=== PATIENT | male | born 1950 | race Hispanic/Latino ===

== ENCOUNTER 2020-06-04 22:37 | Emergency (ER) | payer MEDICARE ==
[2020-06-04] MEDS ORDERED: Morphine 4 MG/ML VIAL ONE (23:14)
[2020-06-04] MEDS ORDERED: Ondansetron PF 4 MG/2 ML Vial ONE (23:14)
--- NOTE | 2020-06-04 23:43 | RAD ---
Right shoulder 3 views HISTORY: Fall. Injury. FINDINGS: Humeral head lies immediately anterior and inferior to the glenoid. There are a 2.7 cm frag ment and a 0.3 cm fragment lying immediately inferior to the distal clavicle. IMPRESSION : Anterior dislocation right shoulder. Acromioclavicular separation with fragmentation of the inferior margin of the distal clavicle. Age in determinate.
--- NOTE | 2020-06-04 23:59 | RAD ---
Right shoulder 2 views HISTORY: Right shoulder dislocation. COMPARISON: Earlier exam on same date. FINDINGS: Glenohumeral alignment is now normal. No fracture fragments evident. Acromioclavicular join t remains widened. IMPRESSION : Interval reduction of the right shoulder dislocation.
== END 2020-06-05 00:24 | disposition home or self-care (01) ==
LOC: ERS 22:37
DX: S43.014A Anterior dislocation of right humerus, initial encounter (principal); I10 Essential (primary) hypertension; E11.9 Type 2 diabetes mellitus without complications; E78.5 Hyperlipidemia, unspecified; Z79.84 Long term (current) use of oral hypoglycemic drugs; Z79.899 Other long term (current) drug therapy; V86.59XA Driver of other special all-terrain or other off-road motor vehicle injured in nontraffic accident, initial encounter
CPT/HCPCS: 23650; 96374; 96375; J2270; J2405

== ENCOUNTER 2024-04-03 08:00 | Outpatient (CLI) | payer MEDICARE | END 2024-04-03 08:01 | disposition home or self-care (01) | LOC: PET 08:00 | PROVIDERS: ATTEND Internal Medicine Hematology & Oncology | DX: C18.9 Malignant neoplasm of colon, unspecified (principal); R22.41 Localized swelling, mass and lump, right lower limb | CPT/HCPCS: 78816; A9552 ==